=== PATIENT | female | born 1970 | race Caucasian/White ===

== ENCOUNTER 2016-10-28 16:59 | Emergency (ER) | payer BC ==
[~2016-10-28] VITALS: Ht 172.7 cm; Wt 94.6 kg
[~2016-10-28 16:59] MED LIST: NAPROSYN500 MG PO; NORCO 5/3251 TABLET PO
[2016-10-28] MEDS ORDERED: LEVO-T137 MCG PO (17:23)
[2016-10-28] MEDS ORDERED: PREDNISONE20 MG PO (19:02)
[2016-10-28] MEDS ORDERED: MOTRIN800 MG PO (19:02)
[2016-10-28] MEDS ORDERED: FLEXERIL10 MG PO (19:02)
[2016-10-28 21:10] VITALS: BP 145/116
== END 2016-10-28 21:12 | disposition home or self-care (01) ==
LOC: EME 16:59
DX: S16.1XXA Strain of muscle, fascia and tendon at neck level, initial encounter (principal); M50.30 Other cervical disc degeneration, unspecified cervical region; E07.9 Disorder of thyroid, unspecified; Z87.442 Personal history of urinary calculi; Z87.891 Personal history of nicotine dependence
CPT/HCPCS: 72050; 72070; 99281; 99283; J1885; J7512

== ENCOUNTER → 2016-12-22 | Outpatient (CLI) | payer BC ==
[~2016-12-22] MED LIST changes: +FLEXERIL10 MG PO; +LEVO-T137 MCG PO; +MOTRIN800 MG PO; +PREDNISONE20 MG PO
== END | disposition home or self-care (01) ==
LOC: NUC 11:48
DX: R10.11 Right upper quadrant pain (principal); R74.0 Nonspecific elevation of levels of transaminase and lactic acid dehydrogenase [LDH]
CPT/HCPCS: 78227; A9510; J2805